=== PATIENT | female | born 1980 ===

== ENCOUNTER 2020-03-18 12:19 | Inpatient (IN) ==
[2020-03-18] MEDS ORDERED: Lidocaine 1% 20 ML MDV INFILT PRN (12:57)
[2020-03-18] MEDS ORDERED: Metoclopramide 10 MG/2 ML VIAL IVP PRN (12:57)
[2020-03-18] MEDS ORDERED: Naloxone 0.4 MG/ML INJ IVP PRN (12:57)
[2020-03-18] MEDS ORDERED: Ondansetron 4 MG/2 ML VIAL IVP PRN (12:57)
[2020-03-18] MEDS ORDERED: Famotidine 20 MG/2 ML VIAL IVP PRN (12:57)
[2020-03-18] MEDS ORDERED: Azithromycin 500 MG in 0.9 % Sodium Chloride 250 ML IVPB PRN (12:57)
[2020-03-18] MEDS ORDERED: *HR* FentaNYL (PF) 100 MCG/2 ML VIAL IVP PRN (12:57)
[2020-03-18] MEDS ORDERED: Oxytocin 20 units/ LR 1000 mL 20 UNIT/1,000 ML BAG IVC SCH (13:00)
[2020-03-18 13:50] LABS: Basophils % 0.3 %; Eosinophils # 0.1 K/mcL (0.0-0.6); Eosinophils % 0.5 %; Hematocrit 36.4 % (35.3-44.9); Immature Granulocytes % 0.4 % (0-4); Lymphocytes # 2.2 K/mcL (0.6-4.6); Lymphocytes % 22.4 %; Mean Corpuscular Hemoglobin 27.6 pg (28.0-33.3); Mean Corpuscular Volume 83.9 fL (83.0-100.0); Mean Platelet Volume 10.1 fL (9.4-12.4); Monocytes # 0.6 K/mcL (0.0-1.3); Monocytes % 5.7 %; Neutrophils # 6.9 K/mcL (1.6-8.9); Platelet Count 220 K/mcL (140-400); Red Blood Count 4.34 M/mcL (3.82-4.97); Red Cell Distribution Width 17.2 % (11.5-14.5); Segmented Neutrophils % 70.7 %; White Blood Count 9.8 K/mcL (4.3-11.1)
[2020-03-18 14:37] LABS: Amphetamine Screen,Urine Negative ng/mL (Cutoff=1000); Barbiturate Screen,Urine Negative ng/mL (Cutoff=200); Benzodiazepines Screen,Urine Negative ng/mL (Cutoff=200); Cannabinoid Screen,Urine Negative ng/mL (Cutoff = 50); Cocaine Screen,Urine Negative ng/mL (Cutoff= 300); Opiate Screen,Urine Negative ng/mL (Cutoff=300); Phencyclidine Screen,Urine Negative ng/mL (Cutoff=25)
[2020-03-18 15:26] LABS: Influenza A PCR Negative (Negative); Influenza B PCR Negative (Negative); Resp. Syncytial Virus PCR Negative (Negative)
[2020-03-18 15:38] LABS: SARS-CoV-2 by PCR (In House) Negative (Negative)
[2020-03-18] MEDS ORDERED: Penicillin G Potassium 5,000,000 UNIT in 0.9 % Sodium Chloride Mini Bag 100 ML IVPB ONE (15:54)
[2020-03-18] MEDS: Ringers Solution, Lactated 1,000 ML IVC SCH ×2 (16:13→22:43)
[2020-03-18] MEDS ORDERED: Nicotine 21 MG PATCH.TD24 TD SCH (16:45)
[2020-03-18] MEDS: Penicillin G Potassium 2,500,000 UNIT/105 ML MLS IVPB SCH (19:43)
[2020-03-19] MEDS: Penicillin G Potassium 2,500,000 UNIT/105 ML MLS IVPB SCH ×3 (00:03→08:30)
[2020-03-19] MEDS ORDERED: Ropivacaine/PF 0.2% 20 ML VIAL EP ONE (03:12)
[2020-03-19] MEDS ORDERED: *HR* FentaNYL (PF) 100 MCG/2 ML VIAL EP ONE (03:12)
[2020-03-19] MEDS ORDERED: EPHEDrine 50 MG/ML VIAL IVP PRN (03:12)
[2020-03-19] MEDS ORDERED: Epidural Premix (fent/bupiv) 110 ML EP SCH (03:15)
[2020-03-19] MEDS ORDERED: Epidural Premix (fent/bupiv) 110 ML EP ONE (03:20)
[2020-03-19] MEDS: Ringers Solution, Lactated 1,000 ML IVC SCH ×2 (04:19→10:15)
[2020-03-19] MEDS ORDERED: Famotidine 20 MG/2 ML VIAL IVP ONE ×2 (08:52→10:12)
[2020-03-19] MEDS ORDERED: Oxytocin 20 units/ LR 1000 mL 20 UNIT/1,000 ML BAG IVC ONE (10:12)
[2020-03-19] MEDS ORDERED: CeFAZolin 2,000 MG/50 ML BAG IVPB ONE (10:12)
[2020-03-19] MEDS ORDERED: Metoclopramide 10 MG/2 ML VIAL IVP ONE (10:12)
[2020-03-19] MEDS ORDERED: *HR* FentaNYL (PF) 100 MCG/2 ML VIAL ONE (10:20)
[2020-03-19] MEDS ORDERED: *HR* Morphine Sulfate/PF 10 MG/10 ML AMPUL ONE (10:20)
[2020-03-19] MEDS ORDERED: Acetaminophen IV 1,000 MG/100 ML BAG IVPB ONE (10:20)
[2020-03-19] MEDS ORDERED: Ropivacaine/PF 0.2% 20 ML VIAL ONE (10:21)
[2020-03-19] MEDS ORDERED: 0.9 % Sodium Chloride 250 ML ONE (10:21)
[2020-03-19] MEDS ORDERED: EPHEDrine 50 MG/ML VIAL ONE (10:21)
[2020-03-19] MEDS ORDERED: Ringers Solution, Lactated 1,000 ML ONE (10:34)
[2020-03-19] MEDS ORDERED: Chloroprocaine/PF 20 ML VIAL INFILT ONE (10:39)
[2020-03-19] MEDS ORDERED: *HR* Phenylephrine 10 MG/ML VIAL ONE (11:08)
[2020-03-19] MEDS ORDERED: Ketamine *HR* 500 MG/10 ML MDV ONE (11:13)
[2020-03-19] MEDS: *HR* HYDROmorphone PF 0.5 MG/0.5 ML SYRINGE IVP PRN ×2 (12:01→12:39)
[2020-03-19] MEDS ORDERED: Sennosides 8.6 MG TABLET PO PRN (14:11)
[2020-03-19] MEDS ORDERED: Metoclopramide 10 MG/2 ML VIAL IVP PRN (14:11)
[2020-03-19] MEDS ORDERED: Rho Immune Globulin 1,500 UNIT SYRINGE IM ONE (14:11)
[2020-03-19] MEDS ORDERED: Ondansetron 4 MG/2 ML VIAL IVP PRN (14:11)
[2020-03-19] MEDS: *HR* Buprenorphine HCl 8 MG TAB.SUBL SL SCH ×2 (14:38→20:16)
[2020-03-19] MEDS: Oxytocin 20 units/ LR 1000 mL 20 UNIT/1,000 ML BAG IVC SCH ×2 (14:39→23:31)
[2020-03-19] MEDS: Nicotine 21 MG PATCH.TD24 TD SCH (16:08)
[2020-03-19] MEDS ORDERED: Acetaminophen 325 MG TABLET PO PRN (17:20)
[2020-03-19] MEDS: Acetaminophen IV 1,000 MG/100 ML BAG IVPB SCH (23:21)
[2020-03-20] MEDS: Acetaminophen IV 1,000 MG/100 ML BAG IVPB SCH ×2 (05:26→12:07)
[2020-03-20 05:28] LABS: Basophils % 0.2 %; Eosinophils # 0.1 K/mcL (0.0-0.6); Eosinophils % 0.8 %; Hematocrit 30.3 % (35.3-44.9); Immature Granulocytes % 0.5 % (0-4); Lymphocytes # 2.6 K/mcL (0.6-4.6); Lymphocytes % 21.9 %; Mean Corpuscular HGB Conc 33.7 g/dL (31.6-35.5); Mean Corpuscular Volume 83.2 fL (83.0-100.0); Monocytes # 0.8 K/mcL (0.0-1.3); Monocytes % 6.8 %; Neutrophils # 8.3 K/mcL (1.6-8.9); Platelet Count 180 K/mcL (140-400); Red Blood Count 3.64 M/mcL (3.82-4.97); Red Cell Distribution Width 17.2 % (11.5-14.5); Segmented Neutrophils % 69.8 %; White Blood Count 11.9 K/mcL (4.3-11.1)
[2020-03-20 05:30] LABS: Hemoglobin 10.2 g/dL (11.5-15.4)
[2020-03-20] MEDS: Nicotine 21 MG PATCH.TD24 TD SCH (08:04)
[2020-03-20] MEDS: Prenatal Vit/FA 1 EACH TABLET PO SCH (08:04)
[2020-03-20] MEDS: *HR* Buprenorphine HCl 8 MG TAB.SUBL SL SCH ×3 (08:05→20:04)
[2020-03-20] MEDS: Simethicone 80 MG TAB.CHEW PO PRN (08:05)
[2020-03-20] MEDS: *HR* OxyCODONE Immed Rel 5 MG TABLET PO PRN ×3 (09:03→23:02)
[2020-03-20] MEDS ORDERED: Etonogestrel 68 MG IMPLANT IL ONE (12:40)
[2020-03-20] MEDS: Acetaminophen 325 MG TABLET PO SCH ×3 (13:00→20:00)
[2020-03-20] MEDS ORDERED: Lidocaine -MPF 1% 5 ML AMPUL ONE (17:26)
[2020-03-20] MEDS ORDERED: Lidocaine -MPF 1% 5 ML AMPUL INFILT ONE (17:27)
[2020-03-21] MEDS: Acetaminophen 325 MG TABLET PO SCH ×4 (07:35→21:49)
[2020-03-21] MEDS: Prenatal Vit/FA 1 EACH TABLET PO SCH (07:36)
[2020-03-21] MEDS: *HR* OxyCODONE Immed Rel 5 MG TABLET PO PRN ×2 (07:36→16:52)
[2020-03-21] MEDS: Nicotine 21 MG PATCH.TD24 TD SCH (07:40)
[2020-03-21] MEDS: *HR* Buprenorphine HCl 8 MG TAB.SUBL SL SCH ×3 (10:13→21:48)
[2020-03-21] MEDS: Simethicone 80 MG TAB.CHEW PO PRN (21:48)
[2020-03-22] MEDS: Acetaminophen 325 MG TABLET PO SCH (03:59)
[2020-03-22] MEDS: *HR* OxyCODONE Immed Rel 5 MG TABLET PO PRN ×2 (04:00→12:13)
[2020-03-22 08:31] VITALS: BP 108/80
[2020-03-22] MEDS: Prenatal Vit/FA 1 EACH TABLET PO SCH (09:56)
[2020-03-22] MEDS: Nicotine 21 MG PATCH.TD24 TD SCH (09:56)
[2020-03-22] MEDS: *HR* Buprenorphine HCl 8 MG TAB.SUBL SL SCH (09:56)
== END 2020-03-22 12:29 | disposition home or self-care (01) | DRG 540 ==
LOC: 1NENULAB 12:19 → 1NENUOBS 03-19 13:56
PROVIDERS: ADMIT Obstetrics & Gynecology; ATTEND Obstetrics & Gynecology